=== PATIENT | male | born 2000 | race African-American/Black ===

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

== ENCOUNTER 2021-02-27 13:20 | Emergency (ER) | payer BC, MEDICAID ==
[~2021-02-27] VITALS: Ht 175.3 cm; Wt 64.4 kg
--- NOTE | 2021-02-27 13:40 | NUR ---
at bedside for assessment
[2021-02-27] MEDS ORDERED: AMOX-430 PO (13:55)
--- NOTE | 2021-02-27 14:02 | NUR ---
Patient discharged to home in stable condition. Triple antibiotic applied. Took all belongings. NO signs of acute distress noted. Written and verbal after care instructions given. Patient verbalizes understanding of instructions. Stressed follow up or return to ER for worsening s/s.
[2021-02-27] MEDS ORDERED: NEOMY/BACITRA/POLYMYXIN B OINT UD PACKET TP ONE (14:05)
[2021-02-27 14:16] VITALS: BP 138/76
== END 2021-02-27 14:10 | disposition home or self-care (01) ==
LOC: ER 13:20
DX: S60.418A Abrasion of other finger, initial encounter (principal); W54.0XXA Bitten by dog, initial encounter; Y92.89 Other specified places as the place of occurrence of the external cause
CPT/HCPCS: A4663

== ENCOUNTER 2021-10-18 15:40 | Emergency (ER) | payer MEDICAID ==
[~2021-10-18] VITALS: Ht 175.3 cm; Wt 65.8 kg
[~2021-10-18 15:40] MED LIST: AMOX-430 PO
[2021-10-18] MEDS ORDERED: PRED50TA PO (17:47)
[2021-10-18] MEDS ORDERED: AMOX500T2 PO (17:47)
[2021-10-18] MEDS ORDERED: DIPH25TA62 PO (17:47)
--- NOTE | 2021-10-18 18:03 | NUR ---
PT WAS EVALUATED BY DR VILLAFANA. PT WAS D/C'd TO HOME. D/C INSTRUCTIONS GIVEN TO THE PT BY DR VILLAFANA.
[2021-10-18 18:05] VITALS: BP 136/78
== END 2021-10-18 18:06 | disposition home or self-care (01) ==
LOC: ER 15:40
DX: K12.2 Cellulitis and abscess of mouth (principal); Z20.822 Contact with and (suspected) exposure to COVID-19
CPT/HCPCS: 86403; 87070; A4663